=== PATIENT | female | born 1965 | race Caucasian/White ===

== ENCOUNTER 2019-08-30 13:27 | Emergency (ER) | payer MEDICARE, MEDICAID ==
[~2019-08-30] VITALS: Ht 170.2 cm; Wt 159.1 kg
[2019-08-30] MEDS ORDERED: fentaNYL/PF 50MCG/1 ML 2ML syringe IV ONE (15:00)
[2019-08-30] MEDS ORDERED: ondansetron/PF 4mg/2ml inj IV ONE (15:00)
[2019-08-30 15:35] LABS: BASOPHILS # (AUTO) 0.1 X10'3 (0-0.2); BASOPHILS % (AUTO) 0.7 % (0-1); EOSINOPHILS # (AUTO) 0.2 X10'3 (0-0.9); EOSINOPHILS % (AUTO) 0.9 % (0-6); HEMATOCRIT 43.7 % (35.0-45.0); HEMOGLOBIN 14.4 g/dl (12.0-16.0); LYMPHOCYTES # (AUTO) 1.9 X10'3 (1.1-4.8); LYMPHOCYTES % (AUTO) 10.7 % (21-51); MEAN CORPUSCULAR HEMOGLOBIN 27.5 PG (27.0-31.0); MEAN CORPUSCULAR VOLUME 83.2 FL (78-98); MONOCYTES % (AUTO) 5.8 % (2-12); NEUTROPHILS # (AUTO) 14.3 X10'3 (1.8-7.7); NEUTROPHILS % (AUTO) 81.9 % (42-75); PLATELET COUNT 238 X10'3 (140-440); RED BLOOD COUNT 5.25 X10'6 (4.20-5.60); RED CELL DISTRIBUTION WIDTH 16.2 % (11.5-14.5); WHITE BLOOD COUNT 17.5 X10'3 (4.5-11.0)
[2019-08-30 15:57] LABS: ALANINE AMINOTRANSFERASE 13 U/L (12-78); ALBUMIN 3.5 G/DL (3.4-5.0); ALBUMIN/GLOBULIN RATIO 0.8 (1.1-1.5); ALKALINE PHOSPHATASE 155 IU/L (46-116); ANION GAP 10 (8-16); ASPARTATE AMINO TRANSFERASE 16 U/L (10-37); BILIRUBIN,TOTAL 0.4 MG/DL (0.1-1.0); BLOOD UREA NITROGEN 20 MG/DL (7-18); BUN/CREATININE RATIO 16.9 (6.6-38.0); CALCIUM 10.1 MG/DL (8.5-10.1); CHLORIDE 102 MMOL/L (99-107); CREATININE 1.18 MG/DL (0.40-0.90); GLUCOSE 201 MG/DL (70-104); POTASSIUM 4.4 MMOL/L (3.5-5.1); SODIUM 138 MMOL/L (135-145); TOTAL CARBON DIOXIDE 26.5 MMOL/L (24-32); TOTAL PROTEIN 8.1 G/DL (6.4-8.2); TROPONIN I < 0.04 NG/ML (0.0-0.05); eGFR 48 ML/MIN
[2019-08-30] MEDS ORDERED: ketorolac trometh. 30mg/ml inj. IV ONE (16:00)
[2019-08-30 19:21] LABS: CLARITY,URINE CLOUDY (Clear); COLOR,URINE AMBER (Yellow); GLUCOSE, URINE 100 mg/dl (Neg); KETONES,URINE TRACE mg/dl (Neg); LEUKOCYTE ESTERASE ,URINE NEGATIVE (Neg); NITRITES, URINE NEGATIVE (Neg); OCCULT BLOOD,URINE LARGE (Neg); PROTEIN,URINE 30 mg/dl (Neg)
[2019-08-30 19:35] LABS: BACTERIA,URINE FEW /HPF (Neg); MUCUS STRANDS FEW /LPF (Neg); RBC,URINE TNTC /HPF (0-2); SQUAMOUS EPITHELIAL CELL,UR MODERATE /LPF (FEW)
[2019-08-30 19:49] LABS: UA COLLECTION TYPE CLN CATCH MIDSTREAM
[2019-08-30] MEDS ORDERED: ONDA8TAB6 PO (19:49)
[2019-08-30] MEDS ORDERED: HYDR-3965 PO (19:49)
[2019-08-30] MEDS ORDERED: HYDROcodone/acetaminophen 10/325mg tab PO ONE (19:50)
[2019-08-30 20:00] VITALS: BP 152/93
== END 2019-08-30 19:59 | disposition home or self-care (01) ==
LOC: ER 13:28
DX: N20.0 Calculus of kidney (principal); E78.00 Pure hypercholesterolemia, unspecified; I25.2 Old myocardial infarction; E11.9 Type 2 diabetes mellitus without complications; Z88.5 Allergy status to narcotic agent
CPT/HCPCS: 36415; 71045; 74176; 80053; 81001; 83605; 84484; 85025; 85610; 86885; 86900; 86901; 87088; 93005; 96374; 96375; 99285; J1885; J2405; J3010

== ENCOUNTER 2020-11-27 09:14 | Emergency (ER) | payer MEDICARE, MEDICAID ==
[~2020-11-27] VITALS: Ht 175.3 cm; Wt 152.7 kg
[~2020-11-27 09:14] MED LIST: ONDA8TAB6 PO
[2020-11-27 09:19] VITALS: BP 156/85
[2020-11-27] MEDS ORDERED: bacitracin 15gm ointment TP ONE (10:15)
[2020-11-27] MEDS ORDERED: FLUO15OI2 TP (10:21)
[2020-11-27] MEDS ORDERED: BACI1PAC7 TOP (10:21)
[2020-11-27] MEDS ORDERED: TETanus/Pertussis (Acell)/Diphther VAC/PF (Tdap-Adult) 0.5ml syringe IMVAC ONE (10:30)
== END 2020-11-27 10:42 | disposition home or self-care (01) ==
LOC: ER 09:15
DX: T25.232A Burn of second degree of left toe(s) (nail), initial encounter (principal); L74.0 Miliaria rubra; E78.00 Pure hypercholesterolemia, unspecified; I25.2 Old myocardial infarction; E66.01 Morbid (severe) obesity due to excess calories; E11.9 Type 2 diabetes mellitus without complications; Z88.6 Allergy status to analgesic agent; Z79.2 Long term (current) use of antibiotics; Z79.899 Other long term (current) drug therapy; Z68.42 Body mass index [BMI] 45.0-49.9, adult; X12.XXXA Contact with other hot fluids, initial encounter; Y93.89 Activity, other specified; Y92.89 Other specified places as the place of occurrence of the external cause; Y99.8 Other external cause status
CPT/HCPCS: 16020; 90471; 90715; 99283